=== PATIENT | female | born 1965 | race Caucasian/White ===

== ENCOUNTER → 2016-09-16 | Outpatient (CLI) | payer BC ==
[~2016-09-16] VITALS: Ht 165.1 cm; Wt 77.3 kg
[~2016-09-16] MED LIST: PRILOSEC20 MG PO
== END | disposition home or self-care (01) ==
LOC: AMB 08-26 12:30
DX: Z12.11 Encounter for screening for malignant neoplasm of colon (principal); K44.9 Diaphragmatic hernia without obstruction or gangrene; K22.10 Ulcer of esophagus without bleeding; R12 Heartburn; K22.2 Esophageal obstruction; K64.8 Other hemorrhoids; K21.9 Gastro-esophageal reflux disease without esophagitis; Z87.891 Personal history of nicotine dependence; Z80.1 Family history of malignant neoplasm of trachea, bronchus and lung; Z82.61 Family history of arthritis; Z83.49 Family history of other endocrine, nutritional and metabolic diseases